=== PATIENT | female | born 1990 | race Caucasian/White ===

== ENCOUNTER 2017-09-11 21:40 | Emergency (ER) | payer OTHER ==
[~2017-09-11] VITALS: Ht 172.7 cm; Wt 81.2 kg
[2017-09-11] MEDS ORDERED: ZOFRAN4 MG PO (23:29)
[2017-09-11] MEDS ORDERED: BUTALB-APAP-CA1 EACH PO (23:29)
[2017-09-11 23:43] VITALS: BP 100/63
== END 2017-09-11 23:44 | disposition home or self-care (01) ==
LOC: M.ERS 21:40
DX: R51 Headache (principal); R11.2 Nausea with vomiting, unspecified; Z90.711 Acquired absence of uterus with remaining cervical stump; Z88.6 Allergy status to analgesic agent